=== PATIENT | female | born 1935 | race Caucasian/White ===

== ENCOUNTER 2021-07-18 07:41 | Outpatient (CLI) | payer MEDICARE, SELFPAY ==
[2021-07-18 07:58] LABS: Basophils Absolute Auto 0.04 K/mm3 (0.00-0.10); Basophils Percent Auto 0.8 % (0.0-1.0); Eosinophils Absolute Auto 0.23 K/mm3 (0.02-0.50); Eosinophils Percent Auto 4.9 % (1.0-6.0); Hematocrit 42.3 % (35.0-42.0); Hemoglobin 13.3 g/dL (11.7-13.8); Immature Granulocyte Absolute 0.01 K/mm3 (0.00-0.00); Immature Granulocyte Percent A 0.2 % (0.0-0.0); Lymphocytes Absolute Auto 1.27 K/mm3 (1.10-4.50); Mean Corpuscular HGB Conc 31.4 g/dL (32.0-36.0); Mean Corpuscular Hemoglobin 31.1 pg (27.0-31.0); Mean Corpuscular Volume 99.1 fL (78.0-102.0); Mean Platelet Volume 9.8 fl (9.2-11.8); Monocytes Absolute Auto 0.37 K/mm3 (0.10-0.90); Monocytes Percent Auto 7.9 % (2.0-11.0); Neutrophils Absolute Auto 2.8 K/mm3 (1.7-7.2); Neutrophils Percent Auto 59.2 % (50.0-70.0); Platelet Count Result 247 K/mm3 (150-420); Red Blood Count 4.27 M/mm3 (4.20-5.40); Red Cell Distribution Width 12.8 % (11.6-14.4); White Blood Count 4.7 K/mm3 (4.8-10.8)
[2021-07-18 08:50] LABS: Alanine Aminotransferase 15 U/L (14-59); Albumin Level 3.4 g/dL (3.4-5.0); Alkaline Phosphatase 79 U/L (46-116); Anion Gap 3 mmol/L (8-16); Aspartate Amino Transferase 18 U/L (15-37); Bilirubin,Total 0.3 mg/dL (0.00-1.00); Blood Urea Nitrogen 19 mg/dL (7-18); Calcium 8.7 mg/dL (8.5-10.1); Carbon Dioxide 36 mmol/L (21-32); Chloride 106 mmol/L (98-108); Cholesterol 252 mg/dL (0-200); Estimated Glomerular Filt Rate 55; Glucose 87 mg/dL (70-99); HDL Direct 76 mg/dL (40-60); LDL Cholesterol Calculated 157 mg/dL (<130); Osmolality Calculated 301 mOsm/kg (285-295); Potassium 4.1 mmol/L (3.5-5.1); Sodium 145 mmol/L (136-145); Total Protein 6.5 g/dL (6.4-8.2); Triglycerides 96 mg/dL (0-150)
== END 2021-07-18 07:42 | disposition home or self-care (01) ==
PROVIDERS: PCP Family Medicine; Visit Provider Family Medicine
DX: D64.9 Anemia, unspecified (principal); I10 Essential (primary) hypertension
CPT/HCPCS: 36415; 80053; 80061; 85025

== ENCOUNTER 2022-08-08 07:14 | Outpatient (CLI) | payer MEDICARE, OTHER, SELFPAY ==
[2022-08-08 07:54] LABS: Alanine Aminotransferase 16 U/L (14-59); Albumin Level 3.3 g/dL (3.4-5.0); Alkaline Phosphatase 84 U/L (46-116); Anion Gap 8 mmol/L (8-16); Aspartate Amino Transferase 25 U/L (15-37); Bilirubin,Total 0.4 mg/dL (0.00-1.00); Blood Urea Nitrogen 22 mg/dL (7-18); Calcium 8.7 mg/dL (8.5-10.1); Carbon Dioxide 31 mmol/L (21-32); Chloride 105 mmol/L (98-108); Estimated Glomerular Filt Rate 46; Glucose 95 mg/dL (70-99); Osmolality Calculated 301 mOsm/kg (285-295); Sodium 144 mmol/L (136-145); Total Protein 6.4 g/dL (6.4-8.2)
== END 2022-08-08 07:15 | disposition home or self-care (01) ==
LOC: CHSLAB 07:19
PROVIDERS: PCP Family Medicine
DX: I35.0 Nonrheumatic aortic (valve) stenosis (principal)
CPT/HCPCS: 36415; 80053

== ENCOUNTER 2023-11-03 08:45 | Emergency (ER) | payer MEDICARE, OTHER, SELFPAY ==
[2023-11-03] VITALS (14 sets, daily range): BP systolic 131–178; BP diastolic 50–81; PULSE 79–83; RESP 16–18; TEMP 36.4; O2SAT 92–99
--- NOTE | ~2023-11-03 | CT_ITS ---
EXAMINATION: CT abdomen pelvis wo con DATE: 11/03/2023 09:45 INDICATION: Blood in stool. Nausea and vomiting for one day. TECHNIQUE: Computed tomography (CT) of the abdomen and pelvis was performed without intravenous contr ast. Automated exposure control and iterative reconstruction technique were employed. Exam dose: 476 .73 mGy-cm total exam DLP. COMPARISON: None. FINDINGS: Cardiomegaly. No pericardial or pleural effusion. The lung bases are clear of infiltrate or consolidation. 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 Large sliding hiatal hernia. 3.1 x 3.6 cm lateral segment left hepatic cyst. No other hepatic space-occupying mass lesion is noted . There is a chronic approximately 8 x 12 mm calcification at the posterior margin of the right hepatic lobe. Status post cholecystectomy. No bile duct or pancreatic duct dilatation. No pancreatic mass lesion or calcification. Normal splenic size. Multiple up to 5 cm right renal cysts. Several left renal cysts, largest situated at the upper pole, exophytic, measuring up to 1.9 cm. No urinary tract calculus or hydroureteronephrosis is detected. Urinary bladder is relatively evacuat ed, unremarkable. Retroverted uterus. Adnexal areas are unremarkable. Normal appendix. There are numerous diverticula of the sigmoid and descending colon and to a minimal extent the right colon; no CT evidence of diverticulitis. There is prominent atherosclerotic calcification of the abdominal aorta but no aneurysm. No intraperitoneal or retroperitoneal or pelvic mass lesion or adenopathy or ascites is noted. 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 There is likely chronic mild anterior wedging of T11 and T12 as well as L1. Status post posterior surgical fusion bilaterally at L4-5. Grade 1 anterolisthesis at L4-5. Grade 2 anterolisthesis and severe degenerative disc disease at L5-S1. IMPRESSION: Cardiomegaly Large sliding hiatal hernia 3.6 cm left hepatic cyst Status post cholecystectomy Bilateral renal cysts Retroverted uterus Normal appendix Diverticulosis of left and to a lesser extent right colon; no CT evidence of diverticulitis Reviewed, dictated and finalized at [facility]. Reviewed, dictated and finalized at [facility]. IMPRESSION: Cardiomegaly Large sliding hiatal hernia 3.6 cm left hepatic cyst Status post cholecystectomy Bilateral renal cysts Retroverted uterus Normal appendix Diverticulosis of left and to a lesser extent right colon; no CT evidence of di verticulitis
--- NOTE | 2023-11-03 08:59 | ED.GIBLEED ---
HPI - GI Bleed General Chief complaint: GI Bleed Stated complaint: rectal bleeding/tarry stool Source: patient Mode of arrival: ambulatory Limitations: no limitations History of Present Illness HPI Narrative: Patient is an 88-year-old female with some dark tarry vomitus and stool. She had this event yesterday. No further today. No abdominal pain. No nausea vomiting or diarrhea at this time. She had a prior peptic ulcer with an EGD and cautery. She is on Plavix. She has a hemoglobin around 9 according to the daughter. MD complaint: coffee ground emesis and melena Onset (ago): day(s) (2) Pain Consistency: other ( None) Severity: mild ( no pain at this time) Relieving factors: none Exacerbating factors: none Context: anticoagulant use Associated symptoms: nausea and vomiting Treatments Prior to Arrival: none Related Data Home Medications Medication Instructions Recorded Confirmed amlodipine 5 mg tablet 5 mg PO DAILY 02/24/19 11/03/23 clopidogrel 75 mg tablet 75 mg PO DAILY 11/03/23 11/03/23 gabapentin 300 mg capsule 300 mg PO DAILY 11/03/23 11/03/23 sertraline 50 mg tablet 50 mg PO DAILY 11/03/23 11/03/23 Allergies Allergy/AdvReac Type Severity Reaction Status Date / Time enoxaparin [Lovenox] Allergy Intermediate palpitations, Verified 11/03/23 08:55 rash, shortness of breath Review of Systems Review of Systems: All systems reviewed & are unremarkable except as noted in HPI and below Constitutional: Constitutional: Reports no additional constitutional complaints Eyes: Eyes: Reports no additional eye complaints ENT: Reports system reviewed and no additional complaints, except as documented Cardiovascular: Cardiovascular: Reports no additional cardiovascular complaints Respiratory: Respiratory: Reports no additional respiratory complaints Gastrointestinal: Gastrointestinal: Reports no additional gastrointestinal complaints Genitourinary: Genitourinary: Reports no additional female genitourinary complaints Musculoskeletal: Musculoskeletal: Reports no additional musculoskeletal complaints Integumentary/Breasts: Skin/Breast: Reports system reviewed and no additional complaints, except as docu Neurologic: Reports system reviewed and no additional complaints, except as documented Psychiatric: Psychiatric: Reports no additional psychiatric complaints Endocrine: Endocrine: Reports no additional endocrine complaints Hematologic/Lymphatic: Hematologic/Lymphatic: Reports no additional hematologic/lymphatic complaints Allergic/Immunologic: Allergic/Immunologic: Reports no additional allergic/immunologic complaints [facility] Social History Social History Smoking status: Never smoker Exam Const: General: healthy appearing Nutritional Appearance: well nourished Orientation/consciousness: patient oriented x3 HENMT: Head: normal to inspection Ears: external ears normal Face/Nose/Sinus: Normal external nose present Eyes: Conjunctivae: conjunctivae normal Pupils: Equal, round and reactive pupils present EOM: EOMs intact bilaterally Neck: Neck: normal visual inspection Chest: Chest palpation & inspection: normal inspection of the chest Resp: Effort & Inspection: normal respiratory effort and not labored Auscultation: clear to auscultation bilaterally Cardio: Rate: regular rate Rhythm: regular rhythm Heart sounds: no murmurs GI: Inspection: non-distended GI Palp: Yes Soft to palpation and No Tenderness to palpation present (GI) Auscultation: normal bowel sounds : General: Yes bladder normal to palpation Back/Spine/Pelvis: Back: no CVA tenderness Skin: General skin exam: normal color Rashes: no rashes Wounds: no wounds Neuro: General: patient oriented x3 Cranial nerves: Yes Nystagmus not present Speech: normal speech Extrem: General: normal to inspection Psych: Mental Status: mental status grossly normal Affec
[2023-11-03] MEDS: ONDANSETRON HCL ODT 4 MG TABLET PO ×2 (09:29→10:21)
[2023-11-03 09:38] LABS: Basophils Absolute Auto 0.03 K/mm3 (0.00-0.10); Basophils Percent Auto 0.6 % (0.0-1.0); Eosinophils Absolute Auto 0.16 K/mm3 (0.02-0.50); Eosinophils Percent Auto 2.9 % (1.0-6.0); Hematocrit 36.1 % (35.0-42.0); Hemoglobin 11.5 g/dL (11.7-13.8); Immature Granulocyte Absolute 0.01 K/mm3 (0.00-0.00); Immature Granulocyte Percent A 0.2 % (0.0-0.0); Lymphocytes Absolute Auto 1.19 K/mm3 (1.10-4.50); Lymphocytes Percent Auto 21.9 % (18.0-42.0); Mean Corpuscular HGB Conc 31.9 g/dL (32-36); Mean Corpuscular Hemoglobin 30.5 pg (27.0-31.0); Mean Corpuscular Volume 95.8 fL (78.0-102.0); Mean Platelet Volume 10.8 fl (9.2-11.8); Monocytes Percent Auto 7.4 % (2.0-11.0); Neutrophils Absolute Auto 3.64 K/mm3 (1.70-7.20); Platelet Count Result 224 K/mm3 (150-420); Red Blood Count 3.77 M/mm3 (4.20-5.40); Red Cell Distribution Width 12.7 % (11.6-14.4); White Blood Count 5.4 K/mm3 (4.8-10.8)
[2023-11-03 09:54] LABS: Occult Blood Negative (Negative)
[2023-11-03 10:00] LABS: INR 0.9
[2023-11-03 10:01] LABS: Alanine Aminotransferase 8 U/L (14-59); Alkaline Phosphatase 73 U/L (46-116); Anion Gap 9 mmol/L (4-12); Aspartate Amino Transferase 17 U/L (15-37); Bilirubin,Total 0.4 mg/dL (0.00-1.00); Blood Urea Nitrogen 22 mg/dL (7-18); Calcium 8.5 mg/dL (8.5-10.1); Carbon Dioxide 29 mmol/L (21-32); Chloride 106 mmol/L (98-108); Estimated Glomerular Filt Rate 58; Glucose 98 mg/dL (70-99); Osmolality Calculated 301 mOsm/kg (285-295); Potassium 3.5 mmol/L (3.5-5.1); Sodium 144 mmol/L (136-145); Total Protein 6.4 g/dL (6.4-8.2)
[2023-11-03 10:06] LABS: Lactic Acid Reflex 0.6 mmol/L (0.4-2.0)
== END 2023-11-03 10:43 | disposition home or self-care (01) ==
PROVIDERS: Emergency Provider Emergency Medicine; PCP Family Medicine
DX: K92.1 Melena (principal); Z79.899 Other long term (current) drug therapy
CPT/HCPCS: 36415; 74176; 80053; 82272; 83605; 85025; 85610; 85730; 99284; A9270

== ENCOUNTER 2023-12-24 13:36 | Outpatient (RCR) | payer MEDICARE, OTHER, SELFPAY ==
--- NOTE | 2023-12-24 15:20 | PTOPEVAL1 ---
Assessment and note entered by Shelley Medina DPT Evaluation Information Assessment Status Evaluation Diagnosis weakness, impaired balance Onset 12/20/23 Subjective Information Patient reports that she has noticed over the last year she has gotten weak and feels her balance is impaired. She reports she has 4 steps to enter the home with railings but does not leave the home alone. She states that she uses a upright walker in the home and a rollator in the community and prefers the rollator. She denies falls but can feel herself leaning backwards. She reports she can stand for up to 10 minutes. She reports history of stroke with L sided weakness. She denies pain Reported Pain Level Pain Score 0: Self Report Assessment PT Clinical Summary Ms. Cartagena is an 88 year old female who presents to PT with weakness and impaired balance. She demonstrates decreased B LE strength, poor balance and impaired gait mechanics. She has difficulty with house hold and community ambulation and completing house hold tasks. She would benefit from skilled PT to address impairment and return to [facility]. Plan of Care Interventions Gait Training,Hot Pack/Cold Pack,Neuro Re- education,Patient/Caregiver Educati,Therapeutic Activities,Therapeutic Exercise PT Services Indicated Yes Treatment Frequency and 3x weekly for 12 visits Duration These treatments will address the objective and functional deficits as defined above. The patient will be advanced safely and appropriately in order for the patient to progress towards his/her prior level of function. Additional exercises will be introduced and as well as a comprehensive home exercise program upon discharge, if needed, ?to ensure carryover of functional gains achieved in the clinic. This treatment plan has been reviewed and agreement upon by the patient.
--- NOTE | 2024-01-15 14:11 | OPREHPOC ---
Outpatient Therapy Plan of Care This is a Multidisciplinary Plan of Care that may contain components documented by all disciplines (PT, OT, and ST.) PT Problem 1 PT Problem #1 Knowledge Deficit PT Goal 1 Goal / Goal Update Patient to demonstrate independence with HEP Target Visit 6 Progress Met PT Goal 2 Goal / Goal Update continue to progress HEP PT Problem 2 PT Problem #2 Impaired Balance PT Goal 1 Goal / Goal Update 1. Patient to deny falls since start of PT -met 2. Patient to improve Tinetti Balance score by 7 points to decrease fall risk -not met Target Visit 12 Progress Partially Met PT Goal 2 Goal / Goal Update continue PT Problem 3 PT Problem #3 Impaired Functional Mobil PT Goal 1 Goal / Goal Update 1. Patient to complete 6 min walk test with least AD -not met 2. Patient to report ability to complete house hold ambulation with no seated rest -met 3. Patient to report ability to stand for >15 minutes to complete house hold chores -not met Target Visit 12 Progress Partially Met PT Goal 2 Goal / Goal Update continue
--- NOTE | 2024-01-15 14:11 | PTOPPROG ---
Assessment and note entered by Charley Keita, PT Evaluation Information Assessment Status Evaluation Diagnosis weakness, impaired balance ICD-10 Condition Codes (PT) R26.9,Weakness R53.1 Other ICD-10 Condition Codes ( R53.81 PT) Onset 12/20/23 Subjective Information Elizabeth Cartagena reports she is getting better overall. She has been able to get in the car by herself, off the commode and chairs by herself. She still has difficulty with getting off the sofa and when she gets out of the shower. She also has trouble standing up straight and walking without the walker. She denies falls. She did have a close call on 01/14/24 when she felt a sensation of falling back. She feels her balance is slowly improving but is still off. She reports she is doing exercises at home. Assessment PT Clinical Summary Elizabeth Cartagena has completed 10 skilled PT visits for generalized weakness and decreased balance. She is reporting improvements noting she can get into a car by herself and she can get off the commode and out of chairs by herself as well. She still has weakness and difficulty getting off the sofa and out of the shower independently. She also still feels off balance and can not walk without her walker. She objectively demonstrates improved scores on standard balance tests, improved LE strength, and improved endurance with walking. Despite these improvements, she is still limited in these areas and demonstrates a high fall risk and can only ambulate for 3.5 minutes before needing to take a break. She will continue to benefit from skilled PT to further improve these physical and functional limitations. Plan of Care Interventions Neuro Re-education,Therapeutic Activities, Therapeutic Exercise PT Services Indicated Yes Treatment Frequency and 2 times a week for 8 visits Duration These treatments will address the objective and functional deficits as defined above. The patient will be advanced safely and appropriately in order for the patient to progress towards his/her prior level of function. Additional exercises will be introduced and as well as a comprehensive home exercise program upon discharge, if needed, ?to ensure carryover of functional gains achieved in the clinic. This treatment plan has been reviewed and agreement upon by the patient.
--- NOTE | 2024-01-24 09:14 | PCPTNOTE ---
Cancelled session due to illness.
--- NOTE | 2024-01-31 13:09 | PCPTNOTE ---
Cancelled session due to illness.
--- NOTE | 2024-02-12 13:03 | PCPTNOTE ---
Cancelled session. Reports she fell after therapy last week and is still sore.
--- NOTE | 2024-03-03 11:47 | OPREHPOC ---
Outpatient Therapy Plan of Care This is a Multidisciplinary Plan of Care that may contain components documented by all disciplines (PT, OT, and ST.) PT Problem 1 PT Problem #1 Knowledge Deficit PT Goal 1 Goal / Goal Update Patient to demonstrate independence with HEP Target Visit 6 Progress Met PT Goal 2 Goal / Goal Update continue to progress HEP Progress Met PT Problem 2 PT Problem #2 Impaired Balance PT Goal 1 Goal / Goal Update 1. Patient to deny falls since start of PT -met 2. Patient to improve Tinetti Balance score by 7 points to decrease fall risk -not met Target Visit 12 Progress Partially Met PT Goal 2 Goal / Goal Update continue PT Problem 3 PT Problem #3 Impaired Functional Mobil PT Goal 1 Goal / Goal Update 1. Patient to complete 6 min walk test with least AD -met 2. Patient to report ability to complete house hold ambulation with no seated rest -met 3. Patient to report ability to stand for >15 minutes to complete house hold chores -progress towards (10 minutes) Target Visit 12 Progress Partially Met PT Goal 2 Goal / Goal Update continue
--- NOTE | 2024-03-03 11:47 | PTOPDC ---
Assessment and note entered by Charley Keita, PT Evaluation Information Assessment Status Discharge Diagnosis Weakness, Impaired Balance ICD-10 Condition Codes (PT) R26.9,Weakness R53.1 Other ICD-10 Condition Codes ( R53.81 PT) Onset 12/20/23 Subjective Information Patient reports she has been having stomach issues off and on and she thinks she may have to go to the doctor. She has been feeling stronger and denies falls since she started PT. She did have one near fall a few weeks ago when she fell into the car and hurt her left side. She reports she has been performing home exercises consisting of standing kicks, squeezing a ball between knees, using the band on the door, and sit to stand from chair. She feels her balance is better and she is less dizzy and less short of breath. She is able to stand 10 minutes at a time now to perform household activities. Reported Pain Level Pain Score 1: Self Report Assessment PT Clinical Summary Elizabeth Cartagena has completed 18 skilled PT visits for weakness and difficulty walking. She is reporting improved strength, improved endurance, and improved balance since initiating PT. She is demonstrating slightly improved balance on the Tinetti but is still a high fall risk. She has also improved her endurance with the 6 minute walk test demonstrating the ability to complete the whole test with one standing rest break. She demonstrates improve LE strength as well. She has met 75% of her goals and will be discharged to an independent [facility] Plan of Care PT Services Indicated No
== END 2024-03-03 13:28 | disposition home or self-care (01) ==
LOC: CHSPT 13:36
PROVIDERS: Visit Provider Family Medicine
DX: R53.81 Other malaise (principal)
CPT/HCPCS: 97110; 97112; 97161; 97530; 97750